=== PATIENT | female | born 1995 | race Caucasian/White ===

== ENCOUNTER 2016-10-10 14:04 | Emergency (ER) | payer OTHER ==
[2016-10-10] MEDS ORDERED: IOPAMIDOL 370 (76%) 100 ML VIAL IV ONE (14:05)
[2016-10-10 14:56] LABS: ABSOLUTE NEUTROPHIL COUNT 8.8 K/mm3 (1.8-7.7); BASO # 0.1 K/mm3 (0.0-0.2); BASO % 0.5 % (0.2-1.0); EOS # 0.1 (0.0-0.5); EOS % 0.5 % (0.9-2.9); HEMATOCRIT 40.6 % (37.0-47.0); HEMOGLOBIN 13.5 gm/l (12.0-16.0); IMM NEUT% 0.3 % (0-1); LYMPH # 3.2 (1.0-4.8); LYMPH % 24.2 % (15-45); MEAN CELL VOLUME 90.8 fl (81.0-99.0); MEAN CORPUSCULAR HEMOGLOBIN 30.2 pg (27.0-31.0); MEAN CORPUSCULAR HGB CONC 33.3 g/dl (33.0-37.0); MEAN PLATELET VOLUME 8.9 fl (7.4-10.4); MONO # 0.9 (0.0-0.8); NEUT % 67.5 % (43-75); PLATELET COUNT 488 K/mm3 (130-400); RED CELL DISTRIBUTION WIDTH 12.1 % (11.5-14.5)
[2016-10-10 15:00] LABS: SPECIFIC GRAVITY 1.015 (1.001-1.030); URINE BILIRUBIN NEGATIVE (NEGATIVE); URINE BLOOD 2+ (NEGATIVE); URINE GLUCOSE (UA) NEGATIVE (NEGATIVE); URINE LEUKOCYTE ESTERASE 2+ (NEGATIVE); URINE NITRITE NEGATIVE (NEGATIVE); URINE PROTEIN 1+ (NEGATIVE); URINE UROBILINOGEN NORMAL (0-1 mg/dl)
[2016-10-10 15:04] LABS: I-STAT CREATININE 0.9 mg/dL (0.6-1.3)
[2016-10-10 15:05] LABS: URINE APPEARANCE HAZY; URINE COLOR YELLOW
[2016-10-10 15:06] LABS: HCG,QUALITATIVE URINE NEGATIVE
[2016-10-10] MEDS ORDERED: HYDROMORPHONE HCL 1 MG/ML SYRINGE ONE (15:16)
[2016-10-10] MEDS ORDERED: CEFTRIAXONE 1 GRAM DUPLEX 50 ML IV ONE (15:16)
[2016-10-10] MEDS ORDERED: PHENAZOPYRIDINE HCL 200 MG TABLET ONE ×2 (15:16→15:18)
[2016-10-10 15:22] LABS: URINE AMORPHOUS SEDIMENT MANY; URINE BACTERIA 1+; URINE EPITHELIAL CELLS 20-30 /hpf; URINE WBC 25-50 /hpf
--- NOTE | 2016-10-10 16:06 | CT ---
ABD/PELVIS W/ CON COMPARISON: None. HISTORY: Upper abdominal pain for 5 days, most severe in the right upper quadrant. Tenderness in the left lower quadrant of moderate intensity. Peritoneal signs present, rigidity present, guarding present, rebound present. Elevated white blood cell count 13.0. Technique: Intravenous injection 100 mL Isovue 370. Using a [employer] Aquilion [address] scanner, images were obtained from the diaphragm to the floor the pelvis. An automated dose reduction technique was used to minimize patient radiation dose. Dose information: CTDIvol (mGy): 8.30 DLP(mGycm): 388.40 FINDINGS: Lung bases: Normal. Inferior mediastinum and heart: Normal. Liver: Normal. Gallbladder:Normal. Bile ducts: Normal. Pancreas: Normal. Spleen: Normal. Adrenal glands: Normal. Kidneys: Normal. Ureters: Normal Urinary bladder: Normal. Uterus and adnexa: Intrauterine device within the uterus. Bilateral ovarian cysts up to 3.1 cm on the right and up to 1.8 cm on the left. No free fluid. No hemorrhage. Blood vessels: Normal Lymph nodes: Mildly enlarged mesenteric lymph nodes. Stomach: Normal Duodenum: Normal Small intestine: Normal Appendix: Not visible as a separate structure. Colon: Normal Abdominal wall and supporting musculature: Normal Bones: Normal IMPRESSION: 1. Multiple bilateral ovarian cysts, up to 3.1 cm in the right and up to 1.8 cm on the left, with no free fluid or hemorrhage. No hydrosalpinx. 2. Normally positioned intrauterine device. 3. Mild mesenteric lymphadenopathy without evidence of colitis or enteritis. The report was sent to the emergency department electronic medical record system, 10/10/2016 at 16:08
[2016-10-11 15:41] LABS: CHLAMYDIA BD Positive (Negative); N.GONORRHOEAE BD Negative (Negative); SOURCE Urine (())
[2016-10-11 17:37] LABS: ALB/GLOB RATIO 1.1 (>1.0); ALBUMIN 4.2 gm/dL (3.5-5.7); CALCIUM 9.6 mg/dL (8.6-10.3)
== END 2016-10-10 16:39 | disposition home or self-care (01) ==
LOC: ED 14:04
DX: N83.209 Unspecified ovarian cyst, unspecified side (principal); N39.0 Urinary tract infection, site not specified
CPT/HCPCS: 87491; 87591; 81025; 85025; 80053; 81001; 74177; 96375; 99284 ×2; 96365; J1170; A9270 ×2; Q9967; J0696

== ENCOUNTER 2016-10-14 18:58 | Emergency (ER) | payer OTHER | END 2016-10-14 20:37 | disposition home or self-care (01) | LOC: ED 18:58 | DX: A74.9 Chlamydial infection, unspecified (principal); Z79.2 Long term (current) use of antibiotics; Z79.1 Long term (current) use of non-steroidal anti-inflammatories (NSAID); Z79.891 Long term (current) use of opiate analgesic ==